=== PATIENT | female | born 1980 | race Caucasian/White ===

== ENCOUNTER → 2018-03-17 12:47 | Outpatient (CLI) | payer MEDICARE, SELFPAY ==
--- NOTE | 2018-03-17 | DI.US.S_ITS ---
PROCEDURE: US ABDOMEN COMPLETE INDICATIONS: RIGHT UPPER QUADRANT PAIN TECHNIQUE: Real-time scanning was performed of the abdominal and retroperitoneal organs, with image documentation. COMPARISON: None. FINDINGS: Liver: Liver is diffusely increased in echogenicity. No focal hepatic abnormalities identified. Normal hepatic size. Gallbladder: No gallstones identified. Normal gallbladder wall. No pericholecystic fluid. Negative sonographic Castano sign. Biliary ducts: Intrahepatic bile ducts are non-dilated. Extrahepatic bile duct caliber measures 3.3 mm. Normal is 6-7 mm or less in diameter, or 10 mm or less post-cholecystectomy. Pancreas: Visualized portions of the pancreas are sonographically normal. Spleen: Spleen is normal in size and homogeneous in echotexture. Kidneys: Kidneys are normal in size and echotexture. Right kidney measures 11.5 cm long; left kidney measures 12.9 cm long. No hydronephrosis or nephrolithiasis. No solid masses. Aorta: Visualized aorta is normal in caliber at less than 3 cm. Iliacs: Not visualized. IVC: Intrahepatic inferior vena cava is patent. Miscellaneous: No free abdominal fluid. IMPRESSION: Increased hepatic echogenicity noted possibly related to hepatic steatosis but other sources of hepatocellular disease cannot be excluded. Recommend clinical correlation. Dictated by: Yon URBANO Interpreted: Kiran Gaffney MD on 03/17/2018 at 14:17 Approved by: Kiran Gaffney M.D. on 03/17/2018 at 15:59
== END ==
PROVIDERS: PCP Physician Assistant; Visit Provider Physician Assistant
DX: R10.11 Right upper quadrant pain (principal)
CPT/HCPCS: 76700

== ENCOUNTER → 2018-11-14 11:43 | Outpatient (CLI) | payer MEDICARE, SELFPAY ==
[2018-11-14 12:56] LABS: Carbon Dioxide 24 mmol/L (22-32); Chloride 103 mmol/L (98-107); Potassium 4.6 mmol/L (3.4-5.1); Sodium 137 mmol/L (137-145)
[2018-11-14 12:57] LABS: Alanine Aminotransferase 75 IU/L (9-52); Albumin 4.5 g/dL (3.5-5.0); Albumin Globulin Ratio 1.6 (1.0-2.8); Alkaline Phosphatase 88 U/L (38-126); Aspartate Aminotransferase 50 IU/L (14-36); BUN Creatinine Ratio 18.9 (6-22); Bilirubin Total 0.6 mg/dL (0.2-1.3); Blood Urea Nitrogen 17 mg/dL (7-17); Calcium 9.5 mg/dL (8.4-10.2); Estimated Glomerular Filt Rate > 60.0 mL/min (>60); Globulin 2.8 g/dL (1.7-4.1); Glucose 101 mg/dL (70-100); HEMOLYSIS < 15 (0-50); Total Protein 7.3 g/dL (6.3-8.2)
== END ==
PROVIDERS: PCP Specialist; Referring Provider Internal Medicine Cardiovascular Disease; Visit Provider Internal Medicine
DX: I10 Essential (primary) hypertension (principal); E74.4 Disorders of pyruvate metabolism and gluconeogenesis
CPT/HCPCS: 36415; 80053

== ENCOUNTER 2020-10-27 09:05 | Emergency (ER) | payer MEDICARE, SELFPAY ==
[2020-10-27 09:08] VITALS: BP 160/87; PULSE 60; RESP 15; TEMP 36.7; O2SAT 97
--- NOTE | 2020-10-27 09:10 | DI.RAD.S_ITS ---
PROCEDURE: XR KNEE LT 3V INDICATIONS: pain after injury TECHNIQUE: Three views of the knee were acquired. COMPARISON: None. FINDINGS: Bones: Postsurgical changes are noted from prior anterior cruciate ligament reconstruction. No acute fracture is identified. Tricompartmental degenerative changes are seen with joint space narrowing and marginal osteophyte formation. No suspicious bony lesions. Soft tissues: Small joint effusion. No suspicious soft tissue calcifications. IMPRESSION: 1. No acute osseous abnormality. 2. Postsurgical changes from prior anterior cruciate ligament reconstruction. 3. Moderate tricompartmental osteoarthrosis. If clinical suspicion and/or symptoms persist, additional imaging with repeat plain films, or advanced imaging (e.g. CT, MRI) may be helpful for further assessment. Dictated by: Kiet Vargas M.D. on 10/27/2020 at 9:29 Approved by: Kiet Vargas M.D. on 10/27/2020 at 9:31
--- NOTE | 2020-10-27 09:17 | ED_ITS ---
HPI - Extremity Injury (Lower) General Chief Complaint: Extremity Injury, Lower Stated Complaint: suspects torn ACL left Time Seen by Provider: 10/27/20 09:08 Source: patient Mode of arrival: Wheelchair Limitations: no limitations History of Present Illness HPI Narrative: Patient is a 40-year-old female here for evaluation of a left knee injury. She has torn the ACL in this knee in the past. It was repaired with what sounds like an autologous hamstring graft. This was performed approximately 15 years ago. She states that recently she is trying to be more active. Several weeks ago while in the pool she potentially sustained injury to this knee again. She thinks that she can remember the exact time that it occurred. Has had pain and swelling in the knee since then. She states she feels like the knee cannot support her weight. She has had several x-rays in the past but not since she injured her knee a couple weeks ago. Related Data Previous Rx's Medication Instructions Recorded hydrocodone-acetaminophen 0 tab PO Q6HP PRN #15 tab 06/14/16 ibuprofen 600 mg PO Q8HP PRN #20 tab 06/14/16 methocarbamol 500 mg PO QIDP PRN #14 tab 06/14/16 cyclobenzaprine 10 mg PO TID PRN #12 tab 10/27/20 tramadol 50 mg PO Q6H PRN #14 tab 10/27/20 Allergies Allergy/AdvReac Type Severity Reaction Status Date / Time codeine [CODEINE] Allergy Unknown Verified 10/27/20 09:12 Review of Systems Musculoskeletal Musculoskeletal: Denies tingling Comments: Left knee pain Integumentary/Breasts Skin/Breast: Denies rash Neurologic Neurologic: Denies tingling Hematologic/Lymphatic On Anticoagulants: No Patient History Medical History (Updated 10/27/20 @ 09:46 by Markos Whitaker DO) Muscle spasms of neck Surgical History History of repair of ACL Social History Smoking Status: Unknown if ever smoked Smoking Status: Unknown if ever smoked alcohol intake frequency: holidays/special occasions only Substance Use Type: marijuana Exam Initial Vital Signs Initial Vital Signs: Vital Signs Temperature 98.0 F 10/27/20 09:08 Pulse Rate 60 10/27/20 09:08 Respiratory Rate 15 10/27/20 09:08 Blood Pressure 160/87 H 10/27/20 09:08 Pulse Oximetry 97 10/27/20 09:08 Const General: cooperative, healthy appearing and comfortable Limitations: mental status not altered HENNM Head: normal to inspection and normocephalic Resp Effort & Inspection: normal respiratory effort Cardio Pulses: dorsalis pedis present on the left Skin Lesions: no lesions Neuro Sensory Exam: no sensory deficits noted Extrem Other: Patient does have a small effusion on the left knee noted on exam. He can do a straight leg raise. She does seem to have an atrophy of the left quadriceps muscle. There does not seem to be a hard endpoint with Partha's on the left. She has had ACL replacement on the right as well and there is not a definitive hard endpoint with this knee is well however the left knee seems more loose than the right. MCL LCL seem to be intact. Psych Appearance: grossly normal and well kempt Course Orders Ordered: ED Orders 10/27/20 09:10 XR knee LT 3V Stat Cyclobenzaprine HCl (Cyclobenzaprine 10 Mg Tablet) 10 mg PO NOW ONE Stop: 10/27/20 09:43 Vital Signs Vital signs: Vital Signs - 8 hr 10/27/20 09:08 Temperature 98.0 F Pulse Rate 60 Respiratory Rate 15 Blood Pressure 160/87 H Pulse Oximetry 97 MDM - Extremity Injury (Lower) Imaging Data Extremity x-ray #1: Radiologist's Impression: [address] [id number] ReportSigned Patient: Livier Smith [facility]#: [id number]: 1980Acct:[id number]/Sex: 40 / FDate of Service: 10/27/20Loc: EDAccession Number: [id number] Procedure: XR knee LT 3V Ordering Provider: Markos Whitaker D.O. PROCEDURE: XR KNEE LT 3V INDICATIONS: pain after injury TECHNIQUE: Three views of the knee were acquired. COMPARISON: None. FINDINGS: Bones: Postsurgical changes are noted from prior anterior cruciate ligament reconstruction. No acute fracture is identified. Tricompartmental degenerative changes are seen with joint space narrowing and marginal osteophyte formation. No suspicious bony lesions. Soft tissues: Small joint effusion. No suspicious soft tissue calcifications. IMPRESSION: 1. No acute osseous abnormality. 2. Postsurgical changes from prior anterior cruciate ligament reconstruction. 3. Moderate tricompartmental osteoarthrosis. If clinical suspicion and/or symptoms persist, additional imaging with repeat plain films, or advanced imaging (e.g. CT, MRI) may be helpful for further assessment. Dictated by: Kiet Vargas M.D. on 10/27/2020 at 9:29 Approved by: Kiet Vargas M.D. on 10/27/2020 at 9:31 [facility] Narrative Medical decision making narrative: Patient is neurovascularly intact. The x-ray shows no acute pathology specifically no fractures. Her physical exam today is somewhat concerning about a left ACL disruption. This is somewhat difficult to determine because she has had an ACL repair in the past. I do not feel specific endpoint with functional testing of the ACL. I did inform her that to be definitive with regard to this she does need to have an MRI. Informed her that this needs to come from either her primary doctor or an orthopedic surgeon. We did discuss bracing of the knee and she will purchase a knee brace [id number]. She states she feels like she needs some crutches today so she was given these. Will send home with a short course of some pain medication and muscle relaxers if she feels like her calf muscle and quad muscle are cramping. She was given return precautions and follow-up instructions. She expressed understanding and agreement. Discharge Plan Departure Patient Disposition: Home Clinical Impression: Injury of knee, left Instructions: Anterior Cruciate Ligament Injury, DI for Knee Pain Activity Restrictions/Additional Instructions: I recommend that you purchase a knee brace [id number] and use it as needed. You can also use the crutches as needed. I suspect that you are going to need an MRI in the future to definitively diagnose a ACL disruption. You need to talk with your primary doctor about this. You can also contact the [facility] at [phone]. Take the medications as directed. Return to the emergency department for any new or worsening symptoms Prescriptions: New cyclobenzaprine 10 mg tablet 10 mg PO TID PRN (Reason: muscle spasm) Qty: 12 RF: 0 tramadol 50 mg tablet 50 mg PO Q6H PRN (Reason: pain) Qty: 14 RF: 0 No Action methocarbamol 500 MG tablet 500 mg PO QIDP PRNQty: 14 RF: 0 hydrocodone-acetaminophen 5 MG/325 MG tablet 0 tab PO Q6HP PRNQty: 15 RF: 0 ibuprofen 600 MG tablet 600 mg PO Q8HP PRNQty: 20 RF: 0 Referrals: Viet Recio MD [Non-Staff] -
[2020-10-27] MEDS: CYCLOBENZAPRINE 10 MG TABLET PO (09:52)
== END 2020-10-27 09:55 | disposition home or self-care (01) ==
LOC: ED 09:22
PROVIDERS: Emergency Provider Emergency Medicine; PCP Physician Assistant Medical
DX: S89.92XA Unspecified injury of left lower leg, initial encounter (principal)
CPT/HCPCS: 73562; 99283; 99284

== ENCOUNTER → 2024-04-30 06:43 | Outpatient (CLI) | payer OTHER, SELFPAY ==
--- NOTE | 2024-04-30 06:46 | DI.ECHO.S_ITS ---
[facility]+ [facility] : : [address] : : [place] : : [id number] : : Phone: [phone] Echocardiogram Report + + :Name: JOANNE MULLINS Study Date: 04/30/2024 Height: 73 in : :[facility] ReadingLocation: Weight: 220 lb : : Gender: Female BSA: 2.2 m2 : :: 1980 Age: 44 yrs BP: 111/87 mmHg: :Reason For Study: NON ISCHEMIC CARDIOMYOPATHY : :Ordering Physician: JOANA, : :SAUD Performed By: Kimberly Bocanegra : :Referring: SAUD BERNARD : + + Interpretation Summary 1. The left ventricular contractility is moderately compromised. Estimated ejection fraction is 35-40% with moderate global hypokinesis. No LVH. Left ventricle enlargement present 2. The right ventricle was not well-visualized. In limited views, the contractility appears to be preserved. 3. There is a hyper echogenic linear density noted in right atrium and right ventricle consistent with a pacemaker wire. 4. No hemodynamically significant pericardial effusion identified. Conclusion: Moderately compromised left ventricular systolic function. There appears to be a decline in systolic function when compared with previous echocardiogram. Procedure: A two-dimensional transthoracic echocardiogram with color flow and Doppler was performed. The study quality was technically adequate. Comparison is made with the echocardiogram of 07/15/2023. The patient was in sinus bradycardia with heart rates between 52-65 bpm during the exam. Left Ventricle: The left ventricle is mildly dilated. There is normal left ventricular wall thickness. The ejection fraction is estimated to be 35-40%. Pericardium/ Pleura There is no pericardial effusion. There is no pleural effusion. MMode/2D Measurements & Calculations LVIDd: 6.0 cm LVIDs: 4.5 cm FS: 23.7 % EPSS: 1.3 cm IVSd: 0.62 cm LVPWd: 0.78 cm LV albrecht. diameter/BSA (cm/m^2): 2.7 LV sys. diameter/BSA (cm/m^2): 2.0 Reading Physician:
== END ==
PROVIDERS: Referring Provider Nurse Practitioner Family; Visit Provider Nurse Practitioner Family
DX: I42.8 Other cardiomyopathies (principal); I47.29 Other ventricular tachycardia
CPT/HCPCS: 93307